=== PATIENT | male | born 1960 | race Two or more races ===

== ENCOUNTER 2017-07-28 15:38 | Emergency (ER) | payer OTHER ==
[2017-07-28 15:44] VITALS: BP 128/92
--- NOTE | 2017-07-28 15:49 | EDPHY ---
H & P Stated Complaint: Poked in R index finger by needle in trash at his work at [employer] [facility] [employer] Time Seen by Provider: 07/28/17 15:47 HPI/ROS: HPI: This is a 56-year-old male who presents with Chief Complaint: Poked in R index finger by needle in trash at his work at [employer] Location: right index finger Quality: needle stick Duration: 2 hr prior to arrival Signs and Symptoms: No bleeding, no radiation, no numbness, no weakness, no tingling, no incontinence, no decreased range of motion, no swelling, no pain, no fever Timing: Acute Severity: Mild Context: Patient is right-hand dominant, presents with accidentally being stuck by a needle that was in the trash can at [employer]. He reports that he was pushing the trash down when he felt the prick on his right finger pad index finger. He reports that there was mild amount of blood. 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 Tetanus booster status unknown. Denies paresthesias, weakness, decreased range of motion. No history of diabetes mellitus Modifying Factors: See above Comment: ROS: see HPI Constitutional: No fever, no chills, no weight loss Eyes: No blurred vision Respiratory: No shortness of breath, no cough Cardiovascular: No chest pain Gastrointestinal: No nausea, no vomiting no diarrhea Genitourinary: No dysuria Extremities: No myalgias Neurologic: No weakness, no numbness Skin: No rashes Hematologic: No bruising, no bleeding MEDICAL/SURGICAL/SOCIAL HISTORY: Medical history: Does not take any regular medications. Surgical history: Denies Social history: Nonsmoker. . Employed at [employer] CONSTITUTIONAL: Polite and cooperative middle-aged male, awake and alert, no obvious distress HEENT: Atraumatic and normocephalic, PERRL, EOMI. Nares patent; no rhinorrhea; no nasal mucosal edema. Tympanic membranes clear. Oropharynx clear, no exudate and moist pink mucosa. Airway patent. No lymphadenopathy. No meningismus. Cardiovascular: Normal S1/S2, regular rate, regular rhythm, without murmur rub or gallop. PULMONARY/CHEST: Symmetrical and nontender. Clear to auscultation bilaterally. Good air movement. No accessory muscle usage. ABDOMEN: Soft, nondistended, nontender, no rebound, no guarding, no peritoneal signs, no masses or organomegaly. No CVAT. EXTREMITIES: 2/2 pulses, strength 5/5, right index finger pad shows fine pinpoint hyperpigmentation area; no surrounding erythema/fluctuance. MCP/PIP/ DIP joints have full flexion and extension with good light touch sensation. no deformities, no clubbing, no cyanosis or edema. NEUROLOGICAL: no focal neuro deficits. GCS 15. SKIN: Warm and dry, no erythema. no rash. Good capillary refill. Source: Patient, [place] Attendant Exam Limitations: Language barrier - Personal History Current Tetanus Diphtheria and Acellular Pertussis (TDAP): Unsure - Medical/Surgical History Other PMH: healthy - Social History Smoking Status: Never smoked Constitutional: Initial Vital Signs Temperature (C) 36.6 C 07/28/17 15:39 Heart Rate 69 07/28/17 15:39 Respiratory Rate 16 07/28/17 15:39 Blood Pressure 128/92 H 07/28/17 15:39 O2 Sat (%) 96 07/28/17 15:39 O2 Delivery Mode Room Air Allergies/Adverse Reactions: No Known Allergies Allergy (Unverified 07/28/17 15:57) Medical Decision Making ED Course/Re-evaluation: Patient already thoroughly cleaned area No indication for x-ray imaging. No signs of foreign body. Hepatitis-B, hepatitis-C, HIV labs ordered Tetanus booster given Advised patient to call back on Sunday to receive the results. No signs of neurovascular compromise/tenting of skin/compartment syndrome/ extremities and joints examined above and below area of concern and are neurovascularly intact. This patient was seen under the supervision of my secondary supervising physician. I evaluated care for this patient independently. Differential Diagnosis: Differential diagnosis is infectious exposure, foreign body, cellulitis. Departure - Departure Disposition: Home, Routine, Self-Care Clinical Impression: Needlestick injury of finger of right hand Qualifiers: Encounter type: initial encounter Qualified Code(s): S61.239A - Puncture wound without foreign body of unspecified finger without damage to nail, initial encounter; W27.3XXA - Contact with needle (sewing), initial encounter; W27.3XXA - Contact with needle (sewing), initial encounter Condition: Good Instructions: Needle Stick Injuries (ED) Additional Instructions: If you do not hear from the emergency room by Sunday regarding your laboratory results, please call the emergency room Sunday afternoon. If any of the tests are positive, you will need to follow up with infectious disease, Dr. Bryan Tobias. Referrals: [facility],. [Clinic] - Follow Up Only If Needed Bryan Tobias MD [Medical Doctor] - Follow Up Only If Needed
[2017-07-28] MEDS ORDERED: TDAP ADULT 0.5 ML INJ (BOOSTRIX) IM ONE (15:55)
[2017-07-30 03:50] LABS: HEPATITIS C ANTIBODY TOTAL NEGATIVE (NEGATIVE)
[2017-07-30 06:25] LABS: HIV TYPE 1 AND 2 NEGATIVE (NEGATIVE)
== END 2017-07-28 16:30 | disposition home or self-care (01) ==
DX: S61.230A Puncture wound without foreign body of right index finger without damage to nail, initial encounter (principal); Z23 Encounter for immunization; W27.3XXA Contact with needle (sewing), initial encounter; Y92.511 Restaurant or cafe as the place of occurrence of the external cause; Y99.8 Other external cause status; Y93.89 Activity, other specified
CPT/HCPCS: G0472